=== PATIENT | male | born 1960 | race Caucasian/White ===

== ENCOUNTER 2016-10-15 21:59 | Emergency (ER) | payer MEDICAID ==
[~2016-10-15] VITALS: Ht 167.6 cm; Wt 88.2 kg
[2016-10-15 22:42] VITALS: BP 120/71; PULSE 70; RESP 18; O2SAT 98
--- NOTE | 2016-10-15 23:46 | ED.REPORT ---
HPI-Extremity Problem Lower Date of Service Oct 15, 2016 ED Provider: Dr. Thornton 56 y/o male with a hx of HTN and thyroid cancer presents to the ED complaining of left knee pain, onset just prior to arrival. He was hit on the knee by a metal lever on a tractor that failed. Associated sx include burning sensation in the left foot. Nursing Notes Stated Complaint: L/KNEE INJURY Chief Complaint: Extremity Trauma Nursing Notes Reviewed: Yes Allergies: Uncoded Allergies: NITRUS OXIDE (Allergy, Severe, 02/29/16) Scheduled PRN oxyCODONE-Acetaminophen 5-325 mg (oxyCODONE-Acetaminophen 5-325 mg) 1 Each Tablet 1-2 TAB PO Q6H PRN PRN For Pain General Time Seen by MD: 23:46 Chief Complaint Knee injury left Hx Obtained From: Patient Arrived By: Walk-in Onset Occurred: Just prior to arrival Symptom Duration: Since onset Caused by: Accidental Location: : Knee left Quality: Painful Severity: Current: Severe Severity: Maximum: Severe Recent Healthcare: No recent doctor visit Similar Sx Previous: No Past Medical History Past Medical History bronchial tube infection, esophageal spasm, HTN, thyroid CA Past Surgical History GERD surgery Smoking History Unknown if Ever Smoker Social History Other Social History: Good social support Ambulatory Status Independent Review of Systems Reports: burning sensation in the left foot. Musculoskeletal: Reports: Joint pain (Left knee pain) Complete sys rev & neg: except as marked. Physical Exam Initial Vital Signs Vital Signs (First) Date Time Temp Pulse Resp B/P Pulse Ox O2 Delivery O2 Flow Rate FiO2 10/15/16 22:42 36.5 70 18 120/71 98 Room Air Initial VS: Reviewed, Vital signs normal Neck: Full range of motion Respiratory: Breath sounds normal, Clear to auscultation, No respiratory distress Cardiovascular: Regular rate & rhythm, Heart sounds normal, Intact distal pulses Upper Extremities: Vascular intact, Neuro intact, No swelling, No tenderness Skin: Warm, Dry, No cyanosis Neurologic: Alert, Oriented, Nonfocal Lower Extremity / Pelvis / MS: No deformity, Neurologic intact, Vascular intact Medial aspect of patella and adjacent distal femur tender. Area of dysesthesia on andrew, below the knee. No visible injury No effusion. No associated injury. Ankle / Foot: Atraumatic, Full range of motion, No deformity, Neurologic intact , Vascular intact Back: Atraumatic, Full range of motion Interpretation & Diagnostics X-Ray Interpretation Xray Interpretation: Result: some soft tissue swelling, otherwise normal X-Ray Ordered: Knee left Interpretation / Wet Read by: Wet read ED physician Re-Eval/Medical Decision Med Decision/Clinical Course 56-year-old male who was struck in the knee forcefully by a lever on the tractor. X-ray shows no fracture. It is a contusion of the anterior knee. He was given a knee immobilizer so that he can bear weight without the knee giving out. He is on chronic pain medications, low-dose Percocet. He is in the process of transitioning insurance and has had none for several days. He was given a prescription for 10 Percocet and was given a shot of Dilaudid 2 mg here in the emergency room. Re-Evaluation/Progress : Time of Eval: 23:55 Patient Status: Moderate relief Re-Evaluation/Progress Note: Discussed imaging results and diagnosis. Informed the pt of the plan to discharge. Pt understands and agrees with plan. F/U instructions and RTER warning given. All questions addressed. Counseled Regarding: Diagnosis, Need for follow-up, When/why to return to ED Discharge & Departure Impression: Primary Impression: Contusion of knee, left Disposition: Home Discharge Condition All VS Reviewed: Yes Condition: Improved Patient Instructions: Contusion in Adults (ED) Additional Instructions: You bruised the knee and likely traumatized one of the superficial nerves. No evidence of fracture or dislocation. Continue your regular pain medicine. I have given your prescription of 10 more tablets as needed. Use knee immobilizer to decrease pain. Ice and elevation for the first couple of days will reduce pain and swelling. Referrals: Jr De Leon PA-C (PCP) Scribe Attestation Portions of this note were transcribed by Abe Morales. I, , personally performed the history, physical exam and medical decision-making;I reviewed and confirmed the accuracy of the information in the transcribed note. Signed by Breanna Storm. 10/16/16 00:57 copies to: Jr De Leon PA-C, Howard L MD Oct 15, 2016 23:46 Abe Morales Oct 16, 2016 00:14
[2016-10-16] MEDS ORDERED: HYDROmorphone 1 mg/mL Inj IM ONE
[2016-10-16] MEDS ORDERED: OXYC1TAB24 PO (00:18)
[2016-10-16 00:19] VITALS: BP 122/50; PULSE 59; O2SAT 100
[2016-10-16 00:54] VITALS: BP 122/50; PULSE 59; RESP 18; O2SAT 100
--- NOTE | 2016-10-16 08:36 | DRSVH ---
PROCEDURE: X-RAY LEFT KNEE, THREE VIEWS ([id number]) INDICATIONS: direct blow TECHNIQUE: 3 views of the knee were acquired. COMPARISON: None. FINDINGS: Bones: No fractures or dislocations. No suspicious bony lesions. Soft tissues: No joint effusion. No suspicious soft tissue calcifications. IMPRESSION: 1. No fracture or subluxation. Dictated by: Dedrick Aldridge M.D. on 10/16/2016 at 8:32 Approved by: Dedrick Aldridge M.D. on 10/16/2016 at 8:35
== END 2016-10-16 00:55 | disposition home or self-care (01) ==
LOC: SED 21:59
DX: S80.02XA Contusion of left knee, initial encounter (principal); W22.8XXA Striking against or struck by other objects, initial encounter; Y93.9 Activity, unspecified; Y92.9 Unspecified place or not applicable; Y99.8 Other external cause status; I10 Essential (primary) hypertension; C73 Malignant neoplasm of thyroid gland; Z88.8 Allergy status to other drugs, medicaments and biological substances
CPT/HCPCS: 73562; 96372; 99284; J1170